=== PATIENT | female | born 1965 | race Caucasian/White ===

== ENCOUNTER 2016-06-30 14:35 | Emergency (ER) | payer MEDICAID ==
[~2016-06-30] VITALS: Ht 160 cm; Wt 82.5 kg
[2016-06-30 14:45] VITALS: BP 150/95
== END 2016-06-30 15:53 | disposition home or self-care (01) ==
LOC: ED 15:30
DX: H10.021 Other mucopurulent conjunctivitis, right eye (principal)
CPT/HCPCS: 99283